=== PATIENT | male | born 1945 | race Caucasian/White ===

== ENCOUNTER 2016-08-07 08:08 | Outpatient (CLI) | payer MEDICARE | END 2016-08-07 08:09 | disposition home or self-care (01) | DX: R73.01 Impaired fasting glucose (principal); R97.20 Elevated prostate specific antigen [PSA] ==

== ENCOUNTER 2017-05-04 10:05 | Outpatient (CLI) | payer MEDICARE ==
[2017-05-04 12:51] LABS: ALBUMIN 4.5 g/dL (3.2-5.5); ALBUMIN/GLOBULIN RATIO 1.3 (1.0-2.2); ALKALINE PHOSPHATASE 48 IU/L (42-121); ALT ALANINE AMINOTRANSFERASE 29 IU/L (10-60); AST ASPARTATE AMINOTRANSFERASE 21 IU/L (10-42); BUN - BLOOD UREA NITROGEN 23 mg/dL (6-20); CALCIUM 9.4 mg/dL (8.5-10.3); CARBON DIOXIDE - CO2 27 mmol/L (21-32); CHLORIDE 99 mmol/L (101-111); CHOL/HDL RATIO 2.6 (<5.0); CHOLESTEROL 179 mg/dL; GFR - MDRD 74 (>89); GLUCOSE 121 mg/dL (70-100); HDL CHOLESTEROL 68 mg/dL; LDL CHOLESTEROL,CALCULATED 85 mg/dL; LDL/HDL RATIO 1.3 (<3.6); SODIUM 135 mmol/L (135-145); TOTAL PROTEIN 7.9 g/dL (6.7-8.2); VLDL CHOLESTEROL 26 mg/dL
[2017-05-04 12:52] LABS: BASOPHILS % (AUTO) 0.6 %; EOSINOPHILS # (AUTO) 0.3 10^3/uL (0.0-0.7); EOSINOPHILS % (AUTO) 5.6 %; HGB - HEMOGLOBIN 14.7 g/dL (14.0-18.0); LYMPHOCYTES # (AUTO) 1.4 10^3/uL (1.5-3.5); LYMPHOCYTES % (AUTO) 23.2 %; MEAN CORPUSCULAR HEMOGLOBIN 30.7 pg (27.0-31.0); MEAN CORPUSCULAR HGB CONC 33.9 g/dL (32.0-36.0); MEAN CORPUSCULAR VOLUME 90.7 fL (80.0-94.0); MEAN PLATELET VOLUME 9.1 fL (7.4-11.4); MONOCYTES # (AUTO) 0.6 10^3/uL (0.0-1.0); MONOCYTES % (AUTO) 9.2 %; NEUTROPHILS # (AUTO) 3.7 10^3/uL (1.5-6.6); NEUTROPHILS % (AUTO) 61.4 %; PLT - PLATELET COUNT 263 10^3/uL (130-450); RED CELL DISTRIBUTION WIDTH 13.4 % (12.0-15.0); WHITE BLOOD COUNT 6.1 x10^3/uL (4.8-10.8)
[2017-05-04 13:02] LABS: HEMOGLOBIN A1C 0.63 g/dL; HEMOGLOBIN A1C % 5.8 % (4.6-6.2)
== END 2017-05-04 10:06 | disposition home or self-care (01) ==
LOC: LAB.WCP 10:05
PROVIDERS: ATTEND Family Medicine
DX: R73.01 Impaired fasting glucose (principal); I10 Essential (primary) hypertension
CPT/HCPCS: 36415; 80053; 80061; 83036; 83721; 85025

== ENCOUNTER 2017-10-04 08:00 | Outpatient (CLI) | payer MEDICARE ==
[2017-10-04 12:53] LABS: ALBUMIN 4.2 g/dL (3.2-5.5); ALBUMIN/GLOBULIN RATIO 1.2 (1.0-2.2); BILIRUBIN,TOTAL 0.8 mg/dL (0.2-1.0); CALCIUM 9.4 mg/dL (8.5-10.3); CREATININE 0.8 mg/dL (0.6-1.2); TOTAL PROTEIN 7.6 g/dL (6.7-8.2)
[2017-10-04 13:38] LABS: HB2 TOTAL 15.8 g/dL; HEMOGLOBIN A1C 0.62 g/dL; HEMOGLOBIN A1C % 5.7 % (4.6-6.2)
== END 2017-10-04 08:01 ==
LOC: LAB.WCP 08:00
PROVIDERS: ATTEND Family Medicine
DX: R73.01 Impaired fasting glucose (principal); Z12.5 Encounter for screening for malignant neoplasm of prostate
CPT/HCPCS: 36415; 80053; 83036; G0103; 84153

== ENCOUNTER 2018-03-25 08:20 | Outpatient (CLI) | payer MEDICARE ==
--- NOTE | 2018-03-25 10:23 | Ultrasound Report ---
Reason: LIVER CYST Procedure Date: 03/25/2018 Accession Number: [id number] / [id number] Procedure: US - Abdomen Limited CPT Code: FULL RESULT: EXAM: ABDOMEN ULTRASOUND LIMITED, RUQ EXAM DATE: 03/25/2018 09:36 AM. CLINICAL HISTORY: Liver cyst. COMPARISON: None. TECHNIQUE: Real-time scanning was performed with static images obtained. FINDINGS: Liver: Right lobe of the liver contains a simple 7.1 x 8.2 x 8.8 cm cyst. Liver parenchyma appears within normal limits and the right lobe of the liver measures at least 17.8 cm. Main portal vein flow: Hepatopetal. Gallbladder: Normal. No stones, wall thickening, or sonographic Owens's sign. Biliary System: CBD measures 3 mm. No intrahepatic or extrahepatic ductal dilatation. Other: A simple cyst is noted in the right kidney which otherwise appears grossly within normal limits. IMPRESSION: Simple cyst in the liver and the right kidney, benign findings. Neither of these require further imaging follow-up. RADIA
== END 2018-03-25 08:21 | disposition home or self-care (01) ==
LOC: DI 08:20
PROVIDERS: ATTEND Family Medicine
DX: K76.89 Other specified diseases of liver (principal); N28.1 Cyst of kidney, acquired
CPT/HCPCS: 76705

== ENCOUNTER 2018-11-10 18:30 | Emergency (ER) | payer MEDICARE ==
--- NOTE | 2018-11-10 19:02 | ED Physician Documentation ---
History of Present Illness - Stated complaint Stated Complaint: LT ELBOW SWOLLEN - Chief complaint Chief Complaint: Ext Problem - History obtained from History obtained from: Patient - History of Present Illness Timing: How many days ago (4) Pain level max: 0 Pain level now: 0 - Additonal information Additional information: bruising to the L elbow x4 days. denies any injury. not on blood thinners. Stopped baby aspirin 3 days ago. nothing makes it better or worse Review of Systems Constitutional: denies: Fever, Chills Respiratory: denies: Cough GI: denies: Nausea, Vomiting, Diarrhea Skin: denies: Rash Musculoskeletal: denies: Neck pain, Back pain Neurologic: denies: Headache PD PAST MEDICAL HISTORY - Past Medical History Past Medical History: Yes Cardiovascular: Hypertension - Present Medications Home Medications: Ambulatory Orders Medication Instructions Recorded Confirmed Aspirin Chewable [[facility] [place] 81 mg PO ONCE 11/10/18 11/10/18 Aspirin] amLODIPine [Norvasc] 5 mg PO DAILY 11/10/18 11/10/18 - Allergies Allergies/Adverse Reactions: Allergies Allergy/AdvReac Type Severity Reaction Status Date / Time No Known Drug Allergies Allergy Verified 11/10/18 18:37 - Living Situation Living Situation: reports: With family Living Arrangement: reports: At home - Social History Does the pt smoke?: No Smoking Status: Never smoker Does the pt drink ETOH?: No Does the pt have substance abuse?: No - Family History Family history: reports: Non contributory PD ED PE NORMAL - Vitals Vital signs reviewed: Yes - General General: Alert and oriented X 3, No acute distress, Well developed/nourished - HEENT HEENT: Moist mucous membranes - Neck Neck: Supple, no meningeal sign - Cardiac Cardiac: RRR - Respiratory Respiratory: No respiratory distress, Clear bilaterally - Derm Derm: Warm and dry - Extremities Extremities: Other (L elbow - Swelling to the olecranon bursa. Mild ecchymosis, appears to be several days old. No numbness or tingling. Neurovascular intact. No bony tenderness. Full range of motion without pain) - Neuro Neuro: Alert and oriented X 3 - Psych Psych: Normal mood, Normal affect Results - Vitals Vitals: Vital Signs - 24 hr 11/10/18 11/10/18 18:34 19:35 Temperature 37.1 C 37.0 C Heart Rate 96 74 Respiratory 18 16 Rate Blood Pressure 169/84 H 152/89 H O2 Saturation 98 94 Oxygen O2 Source Room air Procedures - Splint (location) Left arm Splint applied by: Physician, Tech Type of splint: Long leg, Posterior Other: Patient tolerated well, No complications, Neurovascular intact, Sling provided PD MEDICAL DECISION MAKING - ED course Complexity details: considered differential, d/w patient, d/w family ED course: 72-year-old male with a left olecranon bursitis with superficial ecchymosis of the skin. Placed in a posterior splint for comfort. We will have him remove this in approximately 2 days. We will have him continue to hold his aspirin. No evidence of septic joint. No evidence of fracture. No bony tenderness. Full range of motion present. Patient counseled regarding signs and symptoms for which I believe and urgent re-evaluation would be necessary. Patient with good understanding of and agreement to plan and is comfortable going home at this time This document was made in part using voice recognition software. While efforts are made to proofread this document, sound alike and grammatical errors may occur. Departure - Departure Disposition: 01 Home, Self Care Clinical Impression: Ecchymosis Bursitis Qualifiers: Bursitis location: elbow Elbow bursitis location: olecranon bursitis Laterality: left Qualified Code(s): M70.22 - Olecranon bursitis, left elbow Condition: Good Instructions: ED Bursitis Follow-Up: Brittani Jacobo DO [Primary Care Provider] - Within 1 week Comments: Wear the splint for the next 2 days and then remove it. This should help the swelling in your elbow. Return if you worsen. The bruising will likely continue over the next 24 to 48 hours. Discharge Date/Time: 11/10/18 19:36
[2018-11-10 19:36] VITALS: BP 152/89
== END 2018-11-10 19:36 | disposition home or self-care (01) ==
LOC: ED 18:30
DX: S50.02XA Contusion of left elbow, initial encounter (principal); X58.XXXA Exposure to other specified factors, initial encounter; M70.22 Olecranon bursitis, left elbow; I10 Essential (primary) hypertension
CPT/HCPCS: 29105

== ENCOUNTER 2019-02-24 00:29 | Emergency (ER) | payer MEDICARE ==
--- NOTE | 2019-02-24 02:03 | ED Physician Documentation ---
History of Present Illness - Stated complaint Stated Complaint: MED REACTION,RACING HEART - Chief complaint Chief Complaint: Cardiac - History obtained from History obtained from: Patient - History of Present Illness Timing: Today, How many hours ago (approximately 1-2 hours [employer]) Pain level max: 0 Pain level now: 0 Improved by: improved after taking ativan Worsened by: mild exertional component - Additonal information Additional information: Patient complains of sensation of fast heartbeat, onset approximately 1 to 2 hours ago. There was not a clear, definitive onset of symptoms. rather, patient gradually began to sense that his heart rate was rapid. He then took his pulse and noticed it was approximately 110 bpm. He denies chest pain, shortness of breath. He denies irregular or skipped beat palpitations. patient took a dose of benzodiazepine and this seems to have improved his symptoms. He says he has unusually had some anxiety and or panic attacks, but not frequently enough to have a recognizable pattern and thus he couldnt say if tonights episode was consistent with his previous anxiety exacerbations Review of Systems Constitutional: reports: Reviewed and negative Cardiac: reports: Palpitations. denies: Chest pain / pressure, Pedal edema, Calf pain Respiratory: reports: Reviewed and negative GI: reports: Reviewed and negative PD PAST MEDICAL HISTORY - Past Medical History Cardiovascular: Hypertension - Present Medications Home Medications: Ambulatory Orders Medication Instructions Recorded Confirmed Aspirin Chewable [[facility] Abdullahi 81 mg PO ONCE 11/10/18 11/10/18 Aspirin] Amlodipine Besylate 10 mg PO DAILY 02/24/19 02/24/19 Quinapril/Hydrochlorothiazide 2 tab PO DAILY 02/24/19 02/24/19 [Quinapril-Hctz 20-12.5 mg Tab] Sulfamethoxazole/Trimethoprim 1 tab PO BID 02/24/19 02/24/19 [Sulfamethoxazole-Tmp Ds Tablet] Tamsulosin HCl [Flomax] 0.4 mg PO DAILY 02/24/19 02/24/19 - Allergies Allergies/Adverse Reactions: Allergies Allergy/AdvReac Type Severity Reaction Status Date / Time No Known Drug Allergies Allergy Verified 11/10/18 18:37 - Social History Does the pt smoke?: No Smoking Status: Never smoker Does the pt drink ETOH?: No Does the pt have substance abuse?: No PD ED PE NORMAL - Vitals Vital signs reviewed: Yes - General General: Alert and oriented X 3, No acute distress, Well developed/nourished - Cardiac Cardiac: RRR, No murmur, No gallop, No rub - Respiratory Respiratory: No respiratory distress, Clear bilaterally - Derm Derm: Normal color, Warm and dry - Extremities Extremities: No edema Results - Vitals Vitals: Oxygen O2 Source Room air - EKG (time done) No standard instances Rate: Rate (enter#) Rhythm: Sinus tachycardia, Other (PVCs and ventricular bigeminy for first half of EKG tracing) [place]: Normal Intervals: Normal ND QRS: Normal Ischemia: Non specific changes (V4-V6) - Labs Labs: Laboratory Tests 02/24/19 02/24/19 00:55 00:55 WBC 6.9 RBC 4.77 Hgb 14.5 Hct 42.3 MCV 88.7 MCH 30.4 MCHC 34.3 RDW 12.6 Plt Count 248 MPV 10.7 Neut # (Auto) 4.2 Lymph # (Auto) 1.6 [place] # (Auto) 0.6 Eos # (Auto) 0.4 Baso # (Auto) 0.1 Absolute Nucleated RBC 0.00 Nucleated RBC % 0.0 Sodium 133 L Potassium 3.3 L Chloride 98 L Carbon Dioxide 24 Anion Gap 11.0 BUN 29 H Creatinine 1.2 Estimated GFR (MDRD) 60 L Glucose 165 H Calcium 9.0 PD MEDICAL DECISION MAKING - ED course Complexity details: reviewed results, re-evaluated patient, considered differential, d/w patient, d/w family ED course: patient had minimal symptoms by the time of the initial evaluation tonight, and on reevaluation, after tests resulted, patient reports resolution of his symptoms. He expresses concern that his symptoms might have been related to the bactrim that he was recently started on for a urinary tract infection. According to the PDR, palpitations is not a symptom associated with this antibiotic. I discuss this with him and encouraged him to continue the antibiotic as prescribed. Departure - Departure Disposition: 01 Home, Self Care Clinical Impression: Palpitations Condition: Good Instructions: ED Potassium Deficiency, ED Palpitations Follow-Up: Brittani Jacobo DO [Primary Care Provider] - Discharge Date/Time: 02/24/19 03:34
[2019-02-24 02:20] LABS: BASOPHILS # (AUTO) 0.1 10^3/uL (0.0-0.1); BASOPHILS % (AUTO) 0.9 %; EOSINOPHILS # (AUTO) 0.4 10^3/uL (0.0-0.7); EOSINOPHILS % (AUTO) 5.9 %; HGB - HEMOGLOBIN 14.5 g/dL (14.0-18.0); LYMPHOCYTES # (AUTO) 1.6 10^3/uL (1.5-3.5); LYMPHOCYTES % (AUTO) 23.2 %; MEAN CORPUSCULAR HEMOGLOBIN 30.4 pg (27.0-31.0); MEAN CORPUSCULAR HGB CONC 34.3 g/dL (32.0-36.0); MEAN CORPUSCULAR VOLUME 88.7 fL (80.0-94.0); MEAN PLATELET VOLUME 10.7 fL (7.4-11.4); MONOCYTES # (AUTO) 0.6 10^3/uL (0.0-1.0); MONOCYTES % (AUTO) 8.9 %; NEUTROPHILS # (AUTO) 4.2 10^3/uL (1.5-6.6); NEUTROPHILS % (AUTO) 60.5 %; PLT - PLATELET COUNT 248 10^3/uL (130-450); RED BLOOD COUNT 4.77 10^6/uL (4.70-6.10); RED CELL DISTRIBUTION WIDTH 12.6 % (12.0-15.0); WHITE BLOOD COUNT 6.9 x10^3/uL (4.8-10.8)
[2019-02-24 02:26] LABS: CREATININE 1.2 mg/dL (0.6-1.2)
[2019-02-24] MEDS ORDERED: POTASSIUM CHLORIDE 20 MEQ TABLET PO STA (02:53)
[2019-02-24 03:20] VITALS: BP 128/83
== END 2019-02-24 03:34 | disposition home or self-care (01) ==
LOC: ED 00:29
DX: I49.3 Ventricular premature depolarization (principal); R00.8 Other abnormalities of heart beat; R00.0 Tachycardia, unspecified; I10 Essential (primary) hypertension; Z79.82 Long term (current) use of aspirin
CPT/HCPCS: 36415; 80048; 85025; 93005; 99283; 99284; A9270

== ENCOUNTER 2019-03-07 12:45 | Outpatient (CLI) | payer MEDICARE ==
[2019-03-07 19:00] LABS: BILIRUBIN,URINE NEGATIVE (NEGATIVE); GLUCOSE, URINE (UA) NEGATIVE (NEGATIVE); KETONES,URINE (UA) NEGATIVE (NEGATIVE); LEUKOCYTE ESTERASE, URINE NEGATIVE (NEGATIVE); NITRITE,URINE NEGATIVE (NEGATIVE); OCCULT BLOOD,URINE NEGATIVE (NEGATIVE); PH,URINE 6.5 PH (5.0-7.5); PROTEIN,URINE NEGATIVE (NEGATIVE); UROBILINOGEN,URINE 0.2 (NORMAL) E.U./dL (NORMAL)
[2019-03-07 19:04] LABS: CLARITY,URINE CLEAR (CLEAR)
== END 2019-03-07 23:59 | disposition home or self-care (01) ==
LOC: LAB.R 12:45
PROVIDERS: ATTEND Family Medicine
DX: R35.0 Frequency of micturition (principal)
CPT/HCPCS: 81001; 81003; 87086

== ENCOUNTER 2019-08-13 07:52 | Outpatient (CLI) | payer MEDICARE | END 2019-08-13 23:59 | disposition home or self-care (01) | LOC: LAB.WCP 07:52 | PROVIDERS: ATTEND Urology | DX: C61 Malignant neoplasm of prostate (principal) | CPT/HCPCS: 36415; 84153 ==

== ENCOUNTER 2019-09-19 07:57 | Outpatient (CLI) | payer MEDICARE | END 2019-09-19 23:59 | disposition home or self-care (01) | LOC: LAB.WCP 07:57 | PROVIDERS: ATTEND Family Medicine | DX: I10 Essential (primary) hypertension (principal); R73.01 Impaired fasting glucose | CPT/HCPCS: 36415; 80053; 80061; 83036; 83721; 85025 ==

== ENCOUNTER 2020-11-02 08:00 | Outpatient (CLI) | payer MEDICARE ==
[2020-11-02 18:45] LABS: BASOPHILS # (AUTO) 0.1 10^3/uL (0.0-0.1); EOSINOPHILS # (AUTO) 0.6 10^3/uL (0.0-0.7); EOSINOPHILS % (AUTO) 10.2 %; HCT - HEMATOCRIT 44.9 % (42.0-52.0); HGB - HEMOGLOBIN 14.6 g/dL (14.0-18.0); LYMPHOCYTES # (AUTO) 1.6 10^3/uL (1.5-3.5); LYMPHOCYTES % (AUTO) 25.5 %; MEAN CORPUSCULAR HEMOGLOBIN 29.9 pg (27.0-31.0); MEAN CORPUSCULAR HGB CONC 32.5 g/dL (32.0-36.0); MEAN PLATELET VOLUME 10.7 fL (7.4-11.4); MONOCYTES # (AUTO) 0.6 10^3/uL (0.0-1.0); NEUTROPHILS # (AUTO) 3.3 10^3/uL (1.5-6.6); PLT - PLATELET COUNT 270 10^3/uL (130-450); RED BLOOD COUNT 4.88 10^6/uL (4.70-6.10); RED CELL DISTRIBUTION WIDTH 13.2 % (12.0-15.0); WHITE BLOOD COUNT 6.1 x10^3/uL (4.8-10.8)
[2020-11-02 20:17] LABS: ALBUMIN 4.4 g/dL (3.2-5.5); BILIRUBIN,DIRECT 0.1 mg/dL (0.1-0.5); BILIRUBIN,TOTAL 1.1 mg/dL (0.2-1.0); CREATININE 0.9 mg/dL (0.6-1.2); TOTAL PROTEIN 7.8 g/dL (6.7-8.2)
== END 2020-11-02 23:59 | disposition home or self-care (01) ==
LOC: LAB.WCP 08:00
PROVIDERS: ATTEND Physician Assistant Medical
DX: B35.1 Tinea unguium (principal)
CPT/HCPCS: 36415; 80053; 80061; 80076; 82565; 83036; 83721; 84153; 84154; 84520; 85025

== ENCOUNTER 2020-12-01 08:00 | Outpatient (CLI) | payer MEDICARE ==
[2020-12-01 17:55] LABS: BASOPHILS % (AUTO) 0.7 %; EOSINOPHILS # (AUTO) 0.6 10^3/uL (0.0-0.7); EOSINOPHILS % (AUTO) 9.3 %; HCT - HEMATOCRIT 44.3 % (42.0-52.0); HGB - HEMOGLOBIN 14.8 g/dL (14.0-18.0); LYMPHOCYTES # (AUTO) 1.6 10^3/uL (1.5-3.5); LYMPHOCYTES % (AUTO) 25.7 %; MEAN CORPUSCULAR HEMOGLOBIN 30.2 pg (27.0-31.0); MEAN CORPUSCULAR HGB CONC 33.4 g/dL (32.0-36.0); MEAN CORPUSCULAR VOLUME 90.4 fL (80.0-94.0); MEAN PLATELET VOLUME 10.7 fL (7.4-11.4); MONOCYTES # (AUTO) 0.5 10^3/uL (0.0-1.0); MONOCYTES % (AUTO) 7.6 %; NEUTROPHILS # (AUTO) 3.5 10^3/uL (1.5-6.6); NEUTROPHILS % (AUTO) 56.5 %; PLT - PLATELET COUNT 245 10^3/uL (130-450); WHITE BLOOD COUNT 6.2 x10^3/uL (4.8-10.8)
[2020-12-01 18:13] LABS: ALBUMIN 4.5 g/dL (3.2-5.5); ALBUMIN/GLOBULIN RATIO 1.4 (1.0-2.2); ALKALINE PHOSPHATASE 47 IU/L (42-121); ALT ALANINE AMINOTRANSFERASE 22 IU/L (10-60); AST ASPARTATE AMINOTRANSFERASE 16 IU/L (10-42); BILIRUBIN,TOTAL 1.3 mg/dL (0.2-1.0); BUN - BLOOD UREA NITROGEN 19 mg/dL (6-20); CALCIUM 9.4 mg/dL (8.5-10.3); CARBON DIOXIDE - CO2 25 mmol/L (21-32); CHLORIDE 99 mmol/L (101-111); CHOL/HDL RATIO 2.9 (<5.0); CHOLESTEROL 192 mg/dL; CREATININE 0.7 mg/dL (0.6-1.2); GFR - MDRD 111 (>89); GLUCOSE 114 mg/dL (70-100); HDL CHOLESTEROL 66 mg/dL; LDL CHOLESTEROL,CALCULATED 95 mg/dL; LDL/HDL RATIO 1.4 (<3.6); POTASSIUM 3.5 mmol/L (3.5-5.0); SODIUM 134 mmol/L (135-145); TOTAL PROTEIN 7.8 g/dL (6.7-8.2); TRIGLYCERIDES 153 mg/dL; VLDL CHOLESTEROL 31 mg/dL
[2020-12-01 18:17] LABS: PSA FREE 0.73 ng/mL (0.16-2.81)
[2020-12-01 18:19] LABS: PSA TOTAL 6.47 ng/mL (0.000-2.000)
[2020-12-01 19:56] LABS: ESTIMATED AVERAGE GLUCOSE 131 mg/dL (70-100); HEMOGLOBIN A1c% 6.2 % (4.27-6.07)
== END 2020-12-01 23:59 | disposition home or self-care (01) ==
LOC: LAB.WCP 08:00
PROVIDERS: ATTEND Family Medicine
DX: I10 Essential (primary) hypertension (principal); R73.01 Impaired fasting glucose; C61 Malignant neoplasm of prostate
CPT/HCPCS: 36415; 80053; 80061; 83036; 83721; 84153; 84154; 85025